=== PATIENT | male | born 1990 | race Caucasian/White ===

== ENCOUNTER 2021-12-07 11:15 | Day surgery (SDC) | payer OTHER, SELFPAY ==
[2021-12-07] VITALS (11 sets, daily range): BP systolic 116–138; BP diastolic 80–96; PULSE 46–72; RESP 10–16; TEMP 36.4–36.6; O2SAT 96–98; BMI 32.9
[2021-12-07] MEDS: LACTATED RINGERS 1000 ML 1,000 ML 100 ML IV (12:00)
[2021-12-07] MEDS: SODIUM CHLORIDE 0.9 % (FLUSH) 10 ML SYRINGE IVF (12:06)
[2021-12-07] MEDS: OXYMETAZOLINE 0.05% NASAL SPRAY 2 SPRAY NOSTRIL-B (12:46)
[2021-12-07] MEDS: OXYMETAZOLINE (AFRIN) SOAK 1 EACH TOPICAL (13:03)
[2021-12-07] MEDS: MUPIROCIN 1 GM PACKET 1 APPLIC TOPICAL (13:03)
--- NOTE | 2021-12-07 13:36 | W.PM.ENTPROC ---
Procedure Note Date of procedure: 12/07/21 Procedure: Preoperative diagnosis depressed right nasal fracture Postoperative diagnosis same Procedure closed reduction nasal fracture with internal packing fixation an external Steri tape fixation Under general endotracheal anesthesia the patient was prepped and draped in usual fashion. The nose on the right side was decongested with Afrin pledgets. These were then removed. The fracture was marked externally with the fracture elevator. The elevator was then inserted to the appropriate distance and the fracture was easily elevated. It appeared to be fairly unstable. Therefore a Merocel pack was trimmed and placed beneath the fracture line intranasally on the right side. An external dressing consisting of Steri tapes and benzoin was placed. The patient tolerated the procedure well was taken to recovery in satisfactory condition. Blood loss during procedure was 0 mL. There were no complications. Surgeon: Reji Gore MD
--- NOTE | 2021-12-07 13:43 | W.ANESCHARGE ---
Anesthesia Charges Start Date/Time Anesthesia Start Date: 12/07/21 Anesthesia Start Time: 13:15 Stop Date/Time Anesthesia Stop Date: 12/07/21 Anesthesia Stop Time: 13:41 Summary Emergency: No
--- NOTE | 2021-12-07 13:49 | W.ANESCHARGE ---
Anesthesia Charges Start Date/Time Anesthesia Start Date: 12/07/21 Anesthesia Start Time: 13:15 Stop Date/Time Anesthesia Stop Date: 12/07/21 Anesthesia Stop Time: 13:41 Summary Emergency: No
[2021-12-07] MEDS: LACTATED RINGERS 1000 ML 1,000 ML 35 ML IV (14:01)
[2021-12-07] MEDS: ACETAMINOPHEN 325 MG TABLET PO (15:08)
== END 2021-12-07 15:23 | disposition home or self-care (01) ==
PROVIDERS: PCP Family Medicine; Visit Provider Otolaryngology
PROC: 0NSBXZZ Reposition Nasal Bone, External Approach (ICD-10-PCS; CPT 21320; principal; 2021-12-07 12:45)
DX: S02.2XXA Fracture of nasal bones, initial encounter for closed fracture (principal)
CPT/HCPCS: 21320; 00160; A9270; J0330; J1100; J2250; J2405; J2704; J3010; J7120